=== PATIENT | male | born 1995 | race Caucasian/White ===

== ENCOUNTER 2017-10-04 18:09 | Emergency (ER) | payer SELFPAY ==
[2017-10-04] MEDS ORDERED: Sodium Chloride 0.9% 1,000 ML IV ONE (19:08)
[2017-10-04] MEDS ORDERED: HYDROmorphone 2 MG/ML Syringe IVPUSH ONE (19:08)
[2017-10-04] MEDS ORDERED: Sodium Chloride 0.9% 10 ML Syringe FLUSH PRN (19:08)
[2017-10-04] MEDS ORDERED: Ketorolac 30 MG/ML SDV IVPUSH ONE (19:08)
[2017-10-04] MEDS ORDERED: Sodium Chloride 0.9% 2.5 ML Syringe FLUSH PRN (19:08)
--- NOTE | 2017-10-04 19:11 | EDM.PDOC ---
ED HPI GENERAL MEDICAL PROBLEM - General Chief Complaint: Gastrointestinal Problem Stated Complaint: LEFT SIDE ABDOMINAL PAIN Time Seen by Provider: 10/04/17 19:02 - History of Present Illness INITIAL COMMENTS - FREE TEXT/NARRATIVE: HISTORY AND PHYSICAL: History of present illness: The patient is a 21-year-old male with no significant GI history and no abdominal surgical history presents with sudden onset of left upper/mid abdominal pain that started this morning and has been waxing and waning throughout the day. He says that he has had intense episodes lasting 20-30 minutes and then it will ease up. The patient does drink a lot of pop and is not very good hydrating and eats on the go with a ladder fast foods and junk foods. The patient has last drink alcohol 48 hours ago but only had one drink and does not drink on a regular basis. He took nothing for the pain throughout the day today. He's had no fevers chills nausea vomiting chest pain or shortness of breath. The pain does not radiate and there is no flank pain no urinary complaints or hematuria. There is no right-sided abdominal pain. He describes the pain as a punching-like sensation in this region and it is situated underneath his left ribs in his left mid abdomen. He does not describe it as the left lower abdomen but sometimes will radiate there. Patient states he has never had pain like this before. Review of systems: As per history of present illness and below otherwise all systems reviewed and negative. Past medical history: As per history of present illness and as reviewed below otherwise noncontributory. Surgical history: As per history of present illness and as reviewed below otherwise noncontributory. Social history: No reported history of drug or alcohol abuse. Family history: As per history of present illness and as reviewed below otherwise noncontributory. Physical exam: General: Well-developed well-nourished man who is nontoxic and moves easily in the ED. Vital signs were noted by me HEENT: Atraumatic, normocephalic, pupils reactive, negative for conjunctival pallor or scleral icterus, mucous membranes moist, throat clear, neck supple, nontender, trachea midline. Lungs: Clear to auscultation, breath sounds equal bilaterally, chest nontender. Heart: S1S2, regular, negative for clicks, rubs, or JVD. Abdomen: Soft, nondistended, bowel sounds are hypoactive, there is tenderness in the left upper and left mid abdominal areas without rebound guarding or masses.. Negative for masses or hepatosplenomegaly. Negative for costovertebral tenderness. Pelvis: Stable nontender. Genitourinary: Deferred. Rectal: Deferred. Extremities: Atraumatic, negative for cords or calf pain. Neurovascular unremarkable. Neuro: Awake, alert, oriented. Cranial nerves II through XII unremarkable. Cerebellum unremarkable. Motor and sensory unremarkable throughout. Exam nonfocal. Diagnostics: CBC CMP amylase lipase UA CT scan of the abdomen and pelvis Therapeutics: IV IV fluids Toradol Dilaudid All results were discussed with the patient and mother at bedside including the CT scan findings. The CT scan was also discussed with our surgeon fellmongering machine operator Dr. Snow at 2101; he wants to see the patient in his clinic tomorrow and the patient is aware of this care plan. Patient currently feels stable and is aware of reasons to return to the ED and the clinical importance of follow-up with our surgery clinic. Impression: Left-sided abdominal pain stable Definitive disposition and diagnosis as appropriate pending reevaluation and review of above. Left Lower Abdominal Pain Score (Numeric/FACES): 3 - Related Data Allergies Allergy/AdvReac Type Severity Reaction Status Date / Time No Known Allergies Allergy Verified 10/04/17 18:28 Home Meds: Home Meds . [No Known Home Meds] 10/04/17 [History] Past Medical History - Past Health History Medical/Surgical History: Denies Medical/Surgical History Social & Family History - Family History Family Medical History: Noncontributory - Tobacco Use Smoking Status *Q: Current Every Day Smoker Years of Tobacco use: 4 Packs/Tins Daily: 0.1 Used Tobacco, but Quit: No Second Hand Smoke Exposure: Yes - Caffeine Use Caffeine Use: Reports: Other - Recreational Drug Use Recreational Drug Use: No Drug Use in Last 12 Months: Yes Recreational Drug Type: Reports: Marijuana/Hashish Recreational Drug Use Frequency: Weekly ED ROS GENERAL - Review of Systems Review Of Systems: ROS reveals no pertinent complaints other than HPI. ED EXAM, GENERAL - Physical Exam Exam: See Below (See dictation) Course - Vital Signs Last Recorded V/S: Last Vital Signs Temp 36.3 C 10/04/17 18:30 Pulse 63 10/04/17 19:32 Resp 17 10/04/17 19:32 BP 114/80 10/04/17 19:32 Pulse Ox 98 10/04/17 19:32 - Orders/Labs/Meds Orders: Active Orders 24 hr Category Date Time Status Abdomen Pelvis w Cont [CT] Stat Exams 10/04/17 19:08 Taken Sodium Chloride 0.9% [Saline Flush] Med 10/04/17 19:08 Active 10 ml FLUSH ASDIRECTED PRN Sodium Chloride 0.9% [Saline Flush] Med 10/04/17 19:08 Active 2.5 ml FLUSH ASDIRECTED PRN Saline Lock Insert [OM.PC] Stat Oth 10/04/17 19:08 Ordered Medication Orders Sodium Chloride (Saline Flush) 10 ml FLUSH ASDIRECTED PRN PRN Reason: Keep Vein Open Last Admin: 10/04/17 19:26 Dose: 10 ml Sodium Chloride (Saline Flush) 2.5 ml FLUSH ASDIRECTED PRN PRN Reason: Keep Vein Open Last Admin: 10/04/17 19:31 Dose: 2.5 ml Labs: Laboratory Tests 10/04/17 10/04/17 Range/Units 19:22 19:22 WBC 7.40 (4.0-11.0) K/uL RBC 5.10 (4.50-5.90) M/uL Hgb 15.5 (13.0-17.0) g/dL Hct 45.4 (38.0-50.0) % MCV 89.0 (80.0-98.0) fL MCH 30.4 (27.0-32.0) pg MCHC 34.1 (31.0-37.0) g/dL RDW Std Deviation 40.8 (28.0-62.0) fl RDW Coeff of García 13 (11.0-15.0) % Plt Count 193 (150-400) K/uL MPV 9.90 (7.40-12.00) fL Neut % (Auto) 53.4 (48.0-80.0) % Lymph % (Auto) 37.0 (16.0-40.0) % Ransom % (Auto) 7.4 (0.0-15.0) % Eos % (Auto) 1.9 (0.0-7.0) % Baso % (Auto) 0.3 (0.0-1.5) % Neut # (Auto) 4.0 (1.4-5.7) K/uL Lymph # (Auto) 2.7 H (0.6-2.4) K/uL Ransom # (Auto) 0.6 (0.0-0.8) K/uL Eos # (Auto) 0.1 (0.0-0.7) K/uL Baso # (Auto) 0.0 (0.0-0.1) K/uL Nucleated RBC % 0.0 /100WBC Nucleated RBCs # 0 K/uL Sodium 140 (136-148) mmol/L Potassium 3.6 (3.5-5.1) mmol/L Chloride 104 (98-107) mmol/L Carbon Dioxide 28.4 (21.0-32.0) mmol/L BUN 10 (7.0-18.0) mg/dL Creatinine 1.0 (0.8-1.3) mg/dL Est Cr Clr Drug Dosing TNP Estimated GFR (MDRD) > 60.0 ml/min Glucose 83 (74-106) mg/dL Calcium 8.9 (8.5-10.1) mg/dL Total Bilirubin 0.5 (0.2-1.0) mg/dL AST 16 (15-37) IU/L ALT 28 (14-63) IU/L Alkaline Phosphatase 55 (46-116) U/L Total Protein 6.9 (6.4-8.2) g/dL Albumin 3.9 (3.4-5.0) g/dL Globulin 3.0 (2.0-3.5) g/dL Albumin/Globulin Ratio 1.3 (1.3-2.8) Amylase 61 (25-115) U/L Lipase 105 (73-393) U/L Meds: Medications Generic Name Dose Route Start Last Admin Trade Name Freq PRN Reason Stop Dose Admin Sodium Chloride 10 ml 10/04/17 19:08 10/04/17 19:26 Saline Flush FLUSH 10 ml ASDIRECTED PRN Administration Keep Vein Open Sodium Chloride 2.5 ml 10/04/17 19:08 10/04/17 19:31 Saline Flush FLUSH 2.5 ml ASDIRECTED PRN Administration Keep Vein Open Discontinued Medications Generic Name Dose Route Start Last Admin Trade Name Freq PRN Reason Stop Dose Admin Hydromorphone HCl 0.5 mg 10/04/17 19:08 10/04/17 19:31 Dilaudid IVPUSH 10/04/17 19:09 Not Given ONETIME ONE Hydromorphone HCl Confirm 10/04/17 19:16 10/04/17 19:29 Dilaudid Administered 10/04/17 19:17 2 mg Dose Administration 2 mg .ROUTE .STK-MED ONE Sodium Chloride 1,000 mls @ 999 mls/hr 10/04/17 19:08 10/04/17 19:26 Normal Saline IV 10/04/17 20:08 999 mls/hr STAT ONE Administration Iopamidol 200 ml 10/04/17 20:18 10/04/17 20:20 Isovue Multipack-370 (76%) IVPUSH 10/04/17 20:19 100 ml ONETIME STA Administration Ketorolac Tromethamine 30 mg 10/04/17 19:08 10/04/17 19:27 Toradol IVPUSH 10/04/17 19:09 30 mg ONETIME ONE Administration Departure - Departure Time of Disposition: 21:06 Disposition: Home, Self-Care 01 Condition: Good Clinical Impression: Abdominal pain - Discharge Information Referrals: Barbara Olivera NP [Primary Care Provider] - Forms: ED Department Discharge Additional Instructions: The following information is given to patients seen in the emergency department who are being discharged to home. This information is to outline your options for follow-up care. We provide all patients seen in our emergency department with a follow-up referral. The need for follow-up, as well as the timing and circumstances, are variable depending upon the specifics of your emergency department visit. If you don't have a primary care physician on staff, we will provide you with a referral. We always advise you to contact your personal physician following an emergency department visit to inform them of the circumstance of the visit and for follow-up with them and/or the need for any referrals to a consulting specialist. The emergency department will also refer you to a specialist when appropriate. This referral assures that you have the opportunity for followup care with a specialist. All of these measure are taken in an effort to provide you with optimal care, which includes your followup. Under all circumstances we always encourage you to contact your private physician who remains a resource for coordinating your care. When calling for followup care, please make the office aware that this follow-up is from your recent emergency room visit. If for any reason you are refused follow-up, please contact the [facility] emergency department at and ask to speak to the emergency department charge nurse. [facility] Specialty Care-General Surgery Professional Building [address] [place] [phone] Push hydration and return to ER as needed and as discussed. Please call the clinic tomorrow and speak with the nurse for Dr. Snow; he specifically wants to see you in his clinic tomorrow and they should be scheduling an appointment for you. Please contact my ER charge nurse if you're unable to get this appointment. - My Orders Last 24 Hours: My Active Orders 10/04/17 19:08 Abdomen Pelvis w Cont [CT] Stat Sodium Chloride 0.9% [Saline Flush] 10 ml FLUSH ASDIRECTED PRN Sodium Chloride 0.9% [Saline Flush] 2.5 ml FLUSH ASDIRECTED PRN Saline Lock Insert [OM.PC] Stat - Assessment/Plan Last 24 Hours: My Active Orders 10/04/17 19:08 Abdomen Pelvis w Cont [CT] Stat Sodium Chloride 0.9% [Saline Flush] 10 ml FLUSH ASDIRECTED PRN Sodium Chloride 0.9% [Saline Flush] 2.5 ml FLUSH ASDIRECTED PRN Saline Lock Insert [OM.PC] Stat
[2017-10-04] MEDS ORDERED: HYDROmorphone 2 MG/ML SDV ONE (19:16)
[2017-10-04 19:50] LABS: CHLORIDE,CL 104 mmol/L (98-107); SODIUM,NA 140 mmol/L (136-148)
[2017-10-04] MEDS ORDERED: Iopamidol 755 MG/ML 200 ML Multipack Bottle IVPUSH STA (20:18)
[2017-10-05 01:08] VITALS: BP 110/73
--- NOTE | 2017-10-05 13:48 | CT ---
EXAM DATE: 10/04/17 PATIENT'S AGE: 21 Patient: SANTIAGO BEAULIEU Facility: [place], [place] Site . Site : 1995 Study: CT Abdomen/Pelvis WITH [id number]/[id number] 8:23:29 PM Ordering Physician: Bing Ferro Final Report: HISTORY: Abdomen pain x1 day. TECHNIQUE: The abdomen and pelvis were scanned using helical technique at 3 mm after 100 cc of Isovue-370. Sagittal and coronal reconstructions were performed. FINDINGS: Lung bases: No infiltrate. Liver and gallbladder: The liver parenchyma is homogeneous. No calcified gallstones. Spleen, pancreas and adrenal glands: The spleen is at the upper limits normal at 13.2 cm in greatest dimension. A small splenule is present. Pancreatic parenchyma is homogeneous. The adrenal glands are normal. Kidneys and bladder: Symmetric nephrograms. No calcified urolithiasis or hydronephrosis. Bladder is within normal limits. Retroperitoneum and lymph nodes: Aorta is normal caliber. There are small periaortic and small mesenteric lymph nodes present. No pathologic para-aortic lymphadenopathy. GI tract: There is some fluid in the fundus of the stomach. No dilated small bowel loops are seen. There is a incidental small bowel intussusception seen in the left upper quadrant axial image 52 and coronal reconstruction 25. This is not resulting in small bowel obstruction. There is a normal air-filled appendix. There is minimal stool and gas seen scattered throughout the colon areas of decompression. No pericolonic inflammatory change. There is no free air in the abdomen. There is no free fluid the pelvis. Abdominal wall: Small fat containing umbilical hernia without inflammatory change. Pelvic organs: Prostate is unremarkable. Osseous structures: There is minimal anterior wedging of T11. No acute fracture is identified. There is a unilateral right L5 pars defect. No spondylolisthesis. IMPRESSION: 1. Normal appendix. 2. Incidental small bowel intussusception in the left upper quadrant. This is not resulting in small bowel obstruction is of doubtful clinical significance. 3. Multiple small mesenteric lymph nodes are present question mesenteric adenitis. 4. No hydronephrosis or ureteral obstruction. 5. Spleen is at the upper limits of normal. Dictated by Faby Tse MD @ 10/04/2017 8:52:17 PM Dictated by: Faby Tse MD @ 10/04/2017 20:53:24 (Electronic Signature) Report Signed by Proxy. TAYLER
== END 2017-10-04 21:19 | disposition home or self-care (01) ==
LOC: MW.ED 18:09
DX: R10.32 Left lower quadrant pain (principal); F17.210 Nicotine dependence, cigarettes, uncomplicated
CPT/HCPCS: 36415; 74177; 80053; 82150; 83690; 85025; 96361; 96374; 96375; 99284; J1170; J1885; J7040; Q9967; 99283

== ENCOUNTER 2018-03-02 12:54 | Emergency (ER) | payer SELFPAY ==
[2018-03-02] MEDS ORDERED: Sodium Chloride 0.9% 10 ML Syringe FLUSH PRN (13:01)
[2018-03-02] MEDS ORDERED: Sodium Chloride 0.9% 2.5 ML Syringe FLUSH PRN (13:01)
[2018-03-02] MEDS ORDERED: Sodium Chloride 0.9% 1,000 ML IV ONE (13:01)
[2018-03-02 13:03] VITALS: BP 129/68
[2018-03-02] MEDS ORDERED: Morphine 2 MG/ML Syringe IVPUSH ONE (13:06)
--- NOTE | 2018-03-02 13:13 | EDM.PDOC ---
ED HPI GENERAL MEDICAL PROBLEM - General Chief Complaint: Syncope Stated Complaint: left side pain Time Seen by Provider: 03/02/18 13:08 Source of Information: Reports: Patient - History of Present Illness INITIAL COMMENTS - FREE TEXT/NARRATIVE: HISTORY AND PHYSICAL: History of present illness: Patient is 22-year-old male here with complaint of left-sided abdominal pain started when he woke up this morning at 11:30 AM. He states he got up he immediately felt a sharp pain on his left side of his abdomen. He reports he has had this in the past and was found to have an intussusception without obstruction. He did follow-up with Dr. Crystal who recommended follow-up if pain persisted. He states he has had a hard time breathing secondary to the pain in his abdomen but denies any chest pain. He reports he does feel short of breath. He states about an hour ago he got lightheaded and dizzy and fainted. He denies hitting his head. He denies any nausea, vomiting, diarrhea. He states he had a normal bowel movement yesterday. Patient does smoke a half pack per day. Reports occasional alcohol use last being one week ago. He denies any previous abdominal surgeries. Review of systems: As per history of present illness and below otherwise all systems reviewed and negative. Past medical history: As per history of present illness and as reviewed below otherwise noncontributory. Surgical history: As per history of present illness and as reviewed below otherwise noncontributory. Social history: No reported history of drug or alcohol abuse. Family history: As per history of present illness and as reviewed below otherwise noncontributory. Physical exam: General: Patient sitting comfortably in no acute distress and nontoxic appearing HEENT: Atraumatic, normocephalic, pupils reactive, negative for conjunctival pallor or scleral icterus, mucous membranes moist, throat clear, neck supple, nontender, trachea midline. No meningeal signs. Lungs: Patient is hyperventilating on exam. Clear to auscultation, breath sounds equal bilaterally, chest nontender. Heart: S1S2, regular, negative for clicks, rubs, or overt murmur. Abdomen: Left upper and lower quadrants are moderately tender to palpation. Soft , nondistended. Negative for masses or hepatosplenomegaly. Negative for costovertebral tenderness. Pelvis: Stable nontender. Genitourinary: Deferred. Rectal: Deferred. Extremities: Atraumatic, negative for cords or calf pain. Neurovascular unremarkable. Neuro: Awake, alert, oriented. Cranial nerves II through XII unremarkable. Cerebellum unremarkable. Motor and sensory unremarkable throughout. Exam nonfocal. Notes: 1440 - patient reports no pain after morphine and he is no longer hyperventilating or complaining of SOB/difficulty breathing. 1445 - Discussed CT finding with Dr. Snow, Dr. Snow will follow up with patient in his clinic tomorrow. Diagnostics: CBC, CMP, lipase, EKG, CT abdomen/pelvis w/ contrast Therapeutics: 1 L normal saline IV 2 mg morphine IV Prescriptions: Tramadol 50mg (#10) Impression: Left lower abdominal pain Plan: 1. Take tramadol as needed for severe pain 2. Call Dr. Snow's office tomorrow morning for follow up, he will see you in his clinic tomorrow. 3. Return to ED as needed as discussed. Definitive disposition and diagnosis as appropriate pending reevaluation and review of above. Left Abdominal Pain Score (Numeric/FACES): 10 - Related Data Allergies Allergy/AdvReac Type Severity Reaction Status Date / Time bee venom protein (honey bee) Allergy Hives Verified 03/02/18 12:57 Home Meds: Home Meds . [No Known Home Meds] 10/04/17 [History] Past Medical History - Past Health History Medical/Surgical History: Denies Medical/Surgical History - Infectious Disease History Infectious Disease History: Reports: None Social & Family History - Family History Family Medical History: Noncontributory - Tobacco Use Smoking Status *Q: Current Every Day Smoker Years of Tobacco use: 6 Packs/Tins Daily: 0.5 - Caffeine Use Caffeine Use: Reports: Coffee, Soda - Alcohol Use Days Per Week of Alcohol Use: 1 Number of Drinks Per Day: 2 Total Drinks Per Week: 2 - Recreational Drug Use Recreational Drug Use: No ED ROS GENERAL - Review of Systems Review Of Systems: ROS reveals no pertinent complaints other than HPI. ED EXAM, GI/ABD - Physical Exam Exam: See Below (see dictation) Course - Vital Signs Last Recorded V/S: Last Vital Signs Temp 36.4 C 03/02/18 12:58 Pulse 65 03/02/18 12:58 Resp 18 03/02/18 12:58 BP 129/68 03/02/18 12:58 Pulse Ox 98 03/02/18 12:58 - Orders/Labs/Meds Orders: Active Orders 24 hr Category Date Time Status EKG Documentation Completion [RC] STAT Care 03/02/18 13:07 Active UA W/MICROSCOPIC [URIN] Stat Lab 03/02/18 13:01 Ordered Sodium Chloride 0.9% [Saline Flush] Med 03/02/18 13:01 Active 10 ml FLUSH ASDIRECTED PRN Sodium Chloride 0.9% [Saline Flush] Med 03/02/18 13:01 Active 2.5 ml FLUSH ASDIRECTED PRN Saline Lock Insert [OM.PC] Stat Oth 03/02/18 13:01 Ordered Medication Orders Sodium Chloride (Saline Flush) 10 ml FLUSH ASDIRECTED PRN PRN Reason: Keep Vein Open Sodium Chloride (Saline Flush) 2.5 ml FLUSH ASDIRECTED PRN PRN Reason: Keep Vein Open Labs: Laboratory Tests 03/02/18 03/02/18 Range/Units 13:04 13:04 WBC 8.28 (4.0-11.0) K/uL RBC 4.86 (4.50-5.90) M/uL Hgb 14.8 (13.0-17.0) g/dL Hct 42.5 (38.0-50.0) % MCV 87.4 (80.0-98.0) fL MCH 30.5 (27.0-32.0) pg MCHC 34.8 (31.0-37.0) g/dL RDW Std Deviation 38.7 (28.0-62.0) fl RDW Coeff of García 12 (11.0-15.0) % Plt Count 187 (150-400) K/uL MPV 10.20 (7.40-12.00) fL Neut % (Auto) 51.9 (48.0-80.0) % Lymph % (Auto) 37.3 (16.0-40.0) % Reagan % (Auto) 9.1 (0.0-15.0) % Eos % (Auto) 1.6 (0.0-7.0) % Baso % (Auto) 0.1 (0.0-1.5) % Neut # (Auto) 4.3 (1.4-5.7) K/uL Lymph # (Auto) 3.1 H (0.6-2.4) K/uL Reagan # (Auto) 0.8 (0.0-0.8) K/uL Eos # (Auto) 0.1 (0.0-0.7) K/uL Baso # (Auto) 0.0 (0.0-0.1) K/uL Nucleated RBC % 0.0 /100WBC Nucleated RBCs # 0 K/uL Sodium 139 (136-148) mmol/L Potassium 3.8 (3.5-5.1) mmol/L Chloride 106 (98-107) mmol/L Carbon Dioxide 28.2 (21.0-32.0) mmol/L BUN 15 (7.0-18.0) mg/dL Creatinine 1.2 (0.8-1.3) mg/dL Est Cr Clr Drug Dosing 92.63 mL/min Estimated GFR (MDRD) > 60.0 ml/min Glucose 93 (74-106) mg/dL Calcium 9.1 (8.5-10.1) mg/dL Total Bilirubin 0.3 (0.2-1.0) mg/dL AST 7 L (15-37) IU/L ALT 20 (14-63) IU/L Alkaline Phosphatase 52 (46-116) U/L Total Protein 6.7 (6.4-8.2) g/dL Albumin 3.7 (3.4-5.0) g/dL Globulin 3.0 (2.0-3.5) g/dL Albumin/Globulin Ratio 1.2 L (1.3-2.8) Lipase 238 (73-393) U/L Meds: Medications Generic Name Dose Route Start Last Admin Trade Name Freq PRN Reason Stop Dose Admin Sodium Chloride 10 ml 03/02/18 13:01 Saline Flush FLUSH ASDIRECTED PRN Keep Vein Open Sodium Chloride 2.5 ml 03/02/18 13:01 Saline Flush FLUSH ASDIRECTED PRN Keep Vein Open Discontinued Medications Generic Name Dose Route Start Last Admin Trade Name Freq PRN Reason Stop Dose Admin Sodium Chloride 1,000 mls @ 999 mls/hr 03/02/18 13:01 03/02/18 13:14 Normal Saline IV 03/02/18 14:01 999 mls/hr STAT ONE Administration Morphine Sulfate 2 mg 03/02/18 13:06 03/02/18 13:14 Morphine IVPUSH 03/02/18 13:07 2 mg ONETIME ONE Administration Departure - Departure Time of Disposition: 14:52 Disposition: Home, Self-Care 01 Condition: Good Clinical Impression: Abdominal pain, LLQ - Discharge Information Referrals: Barbara Olivera NP [Primary Care Provider] - Jevon Snow MD [Physician] - 1 Day Forms: ED Department Discharge Additional Instructions: The following information is given to patients seen in the emergency department who are being discharged to home. This information is to outline your options for follow-up care. We provide all patients seen in our emergency department with a follow-up referral. The need for follow-up, as well as the timing and circumstances, are variable depending upon the specifics of your emergency department visit. If you don't have a primary care physician on staff, we will provide you with a referral. We always advise you to contact your personal physician following an emergency department visit to inform them of the circumstance of the visit and for follow-up with them and/or the need for any referrals to a consulting specialist. The emergency department will also refer you to a specialist when appropriate. This referral assures that you have the opportunity for follow-up care with a specialist. All of these measure are taken in an effort to provide you with optimal care, which includes your follow-up. Under all circumstances we always encourage you to contact your private physician who remains a resource for coordinating your care. When calling for follow-up care, please make the office aware that this follow-up is from your recent emergency room visit. If for any reason you are refused follow-up, please contact the [facility] Emergency Department at and asked to speak to the emergency department charge nurse. [facility] Specialty Care - General Surgery Professional Building [address] [place] [address], [address] [place] [address] 1. Take tramadol as needed for severe pain 2. Call Dr. Snow's office tomorrow morning for follow up, he will see you in his clinic tomorrow. 3. Return to ED as needed as discussed. - My Orders Last 24 Hours: My Active Orders 03/02/18 13:01 UA W/MICROSCOPIC [URIN] Stat Sodium Chloride 0.9% [Saline Flush] 10 ml FLUSH ASDIRECTED PRN Sodium Chloride 0.9% [Saline Flush] 2.5 ml FLUSH ASDIRECTED PRN Saline Lock Insert [OM.PC] Stat 03/02/18 13:07 EKG Documentation Completion [RC] STAT - Assessment/Plan Last 24 Hours: My Active Orders 03/02/18 13:01 UA W/MICROSCOPIC [URIN] Stat Sodium Chloride 0.9% [Saline Flush] 10 ml FLUSH ASDIRECTED PRN Sodium Chloride 0.9% [Saline Flush] 2.5 ml FLUSH ASDIRECTED PRN Saline Lock Insert [OM.PC] Stat 03/02/18 13:07 EKG Documentation Completion [RC] STAT
[2018-03-02 13:47] LABS: CHLORIDE,CL 106 mmol/L (98-107); SODIUM,NA 139 mmol/L (136-148)
--- NOTE | 2018-03-02 14:34 | CT ---
CT of the abdomen and pelvis with contrast. HISTORY: Pain TECHNIQUE: Axial CT images were obtained of the abdomen and pelvis following administration of 100 mL of Isovue-370 in the left antecubital fossa without complication. Coronal and sagittal reconstructio ns obtained. FINDINGS: The lung bases are clear, no focal consolidation. The liver, spleen, adrenal glands, and pancreas appear normal. The gallbladder is normal. No bulky re troperitoneal lymphadenopathy or abdominal ascites. The kidneys enhance and function symmetrically wi thout evidence of obstructive uropathy. The large and small bowel are normal in caliber without evidence of obstruction. Again noted is a kathie y small area of intussusception within the left lower quadrant. No focal pericolonic inflammation or stranding. Appendix is normal. Bulky pelvic lymphadenopathy or free pelvic fluid. Urinary bladder is normal. No suspicious osseous abnormalities identified. Possible mild early sacroiliitis bilaterally. 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 IMPRESSION: 1. No acute findings noted within the abdomen or pelvis. 2. Possible mild symmetric bilateral sacroiliitis. 3. Small area of intussusception within the left abdomen, likely transient given the size.
[2018-03-02] MEDS ORDERED: Iopamidol 755 MG/ML 500 ML Multipack Bottle IVPUSH STA (16:16)
== END 2018-03-02 15:08 | disposition home or self-care (01) ==
LOC: MW.ED 12:54
DX: R10.32 Left lower quadrant pain (principal); F17.210 Nicotine dependence, cigarettes, uncomplicated; Z91.030 Bee allergy status
CPT/HCPCS: 36415; 74177; 80053; 83690; 85025; 93005; 96361; 96374; 99284; J2270; J7040; Q9967